=== PATIENT | female | born 1955 | race Caucasian/White ===

== ENCOUNTER 2019-07-28 07:53 | Day surgery (SDC) | payer OTHER ==
[~2019-07-28] VITALS: Ht 167.6 cm; Wt 84.4 kg
[~2019-07-28 07:53] MED LIST: ASPI-1026 PO; ATOR-2 PO; DULO60CA64 PO; FURO40TA5 PO; INSU100I35 SQ; INSU3INS5 SQ; LACT10SO PO; LEVO50TA11 PO; METF-444 PO; SODIUM CHLORIDE 0.9% 1000ML 1,000 ML IV ONE; SPIR50TA PO; TELM80TA10 PO
[2019-07-28 09:12] VITALS: BP 114/75
[2019-07-28 09:21] LABS: BASOPHILS % (AUTO) 1.1 % (0.0-5.0); EOSINOPHILS % (AUTO) 3.6 % (0.0-8.0); HEMATOCRIT 43.4 % (36-48); LYMPHOCYTES % (AUTO) 35.3 % (21.0-51.0); MEAN CORPUSCULAR HEMOGLOBIN 32.5 pg (27.0-33.0); MEAN CORPUSCULAR HGB CONC 34.4 g/dL (32.0-36.0); MEAN CORPUSCULAR VOLUME 94.7 fL (79-99); MONOCYTES % (AUTO) 6.5 % (3.0-13.0); NEUTROPHILS % (AUTO) 53.5 % (40.0-77.0); PLATELET COUNT (AUTO) 269 K/uL (130-400); RED BLOOD CELL COUNT(AUTO) 4.58 MIL/uL (4.00-5.50); RED CELL DISTRIBUTION WIDTH 13.6 % (11.0-15.5)
[2019-07-28 09:30] LABS: INR 1.12 (0.85-1.15); PROTHROMBIN TIME 11.7 SEC (9.6-11.6)
[2019-07-28] MEDS ORDERED: PROPOFOL 10 MG/ML 20ML VIAL IV ONE (10:08)
[2019-07-28 10:34] VITALS: BP 107/90
[2019-07-28 10:41] VITALS: BP 101/56
[2019-07-28 10:45] VITALS: BP 103/58
[2019-07-28 10:51] VITALS: BP 123/57
[2019-07-28 11:01] VITALS: BP 117/74
== END 2019-07-28 11:00 | disposition home or self-care (01) ==
LOC: ENDO 07:53 → DAH 07:53 → ENDO 11:00
PROVIDERS: ATTEND Internal Medicine
DX: K29.50 Unspecified chronic gastritis without bleeding (principal); K44.9 Diaphragmatic hernia without obstruction or gangrene; K70.31 Alcoholic cirrhosis of liver with ascites; E03.9 Hypothyroidism, unspecified; E11.9 Type 2 diabetes mellitus without complications; F41.9 Anxiety disorder, unspecified; I10 Essential (primary) hypertension; E78.5 Hyperlipidemia, unspecified; I69.351 Hemiplegia and hemiparesis following cerebral infarction affecting right dominant side; F32.9 Major depressive disorder, single episode, unspecified; Z79.84 Long term (current) use of oral hypoglycemic drugs; Z79.899 Other long term (current) drug therapy; Z90.49 Acquired absence of other specified parts of digestive tract; Z90.710 Acquired absence of both cervix and uterus; Z96.641 Presence of right artificial hip joint; Z72.89 Other problems related to lifestyle; Z86.010 Personal history of colon polyps; Z79.4 Long term (current) use of insulin; Z87.891 Personal history of nicotine dependence; Z82.49 Family history of ischemic heart disease and other diseases of the circulatory system
CPT/HCPCS: 36415; 43237; 43239; 82948 ×2; 85025; 85610; 88305; A4215; A4221; A4222; A4223; A4606; A4615; A4663; J2704; J7030

== ENCOUNTER → 2020-06-29 | Outpatient (CLI) | payer OTHER ==
[~2020-06-29] MED LIST changes: -SODIUM CHLORIDE 0.9% 1000ML 1,000 ML IV ONE
== END | disposition home or self-care (01) ==
LOC: DAH 10:00 → EDSTATUS 07-05 08:15
PROVIDERS: ATTEND Internal Medicine
DX: U07.1 COVID-19 (principal); D12.6 Benign neoplasm of colon, unspecified; D13.1 Benign neoplasm of stomach
CPT/HCPCS: C9803; U0003

== ENCOUNTER → 2022-06-14 | Outpatient (CLI) | payer OTHER ==
[~2022-06-14] MED LIST changes: -LACT10SO PO; +LACT10SO5 PO
== END | disposition home or self-care (01) ==
LOC: DAH 10:00 → EDSTATUS 06-19 17:07
PROVIDERS: ATTEND Internal Medicine
DX: K70.31 Alcoholic cirrhosis of liver with ascites (principal); D13.1 Benign neoplasm of stomach; Z86.010 Personal history of colon polyps
CPT/HCPCS: 87426